=== PATIENT | female | born 1995 | race Caucasian/White ===

== ENCOUNTER 2016-09-01 12:47 | Emergency (ER) | payer BC, MEDICAID ==
[2016-09-01 13:03] VITALS: BP 142/98
[2016-09-01] MEDS ORDERED: IBUPROFEN 800 MG TABLET PO ONE (13:42)
--- NOTE | 2016-09-01 13:42 | ER Document Report ---
ED Extremity Problem, Lower - General Chief Complaint: Knee Injury Stated Complaint: RIGHT KNEE INJURY Time Seen by Provider: 09/01/16 13:41 Mode of Arrival: Ambulatory Information source: Patient Notes: Patient is a 21-year-old female who presents to the ER today with right knee pain. She does not know if there was a real injury, but states that it started approximately 4 days ago when she was washing some bands at her mom' s house at 10 in the morning. She is not sure if she turned on a wrong, etc. She denies any numbness or tingling. She states that it is "tight" TRAVEL OUTSIDE OF THE [place] IN LAST 30 DAYS: No - Related Data Allergies/Adverse Reactions: No Known Allergies Allergy (Verified 09/01/16 13:01) Past Medical History - General Information source: Patient - Social History Smoking Status: Unknown if Ever Smoked Family History: Reviewed & Not Pertinent Patient has suicidal ideation: No Patient has homicidal ideation: No Neurological Medical History: Reports: Hx Seizures - from medications Renal/ Medical History: Denies: Hx Peritoneal Dialysis - Immunizations Immunizations up to date: Yes Hx Diphtheria, Pertussis, Tetanus Vaccination: Yes - 12/16/13 Review of Systems - Review of Systems Constitutional: No symptoms reported EENT: No symptoms reported Cardiovascular: No symptoms reported Respiratory: No symptoms reported Gastrointestinal: No symptoms reported Genitourinary: No symptoms reported Female Genitourinary: No symptoms reported Musculoskeletal: See HPI Skin: No symptoms reported Hematologic/Lymphatic: No symptoms reported Neurological/Psychological: No symptoms reported Physical Exam - Vital signs Vitals: Temp Pulse Resp BP Pulse Ox 98.5 F 78 18 142/98 H 99 09/01/16 13:01 09/01/16 13:01 09/01/16 13:01 09/01/16 13:01 09/01/16 13:01 - Notes Notes: PHYSICAL EXAMINATION: GENERAL: Well-appearing and in no acute distress. HEAD: Atraumatic, normocephalic. EYES: Pupils equal round and reactive to light, extraocular movements intact, sclera anicteric, conjunctiva are normal. NECK: Normal range of motion, supple without lymphadenopathy LUNGS: CTAB and equal. No wheezes rales or rhonchi. HEART: Regular rate and rhythm without murmurs EXTREMITIES: Right knee nontender to palpation, nontender to extension or flexion, weightbearing, normal range of motion, no pitting edema. No cyanosis. NEUROLOGICAL: Cranial nerves grossly intact. Normal sensory/motor exams. PSYCH: Normal mood, normal affect. SKIN: Warm, Dry, normal turgor, no rashes or lesions noted Course - Re-evaluation Re-evalutation: 09/01/16 15:05 X-ray of the right knee negative for any acute pathology. Patient placed in Jeremiah wrap and given crutches. - Vital Signs Vital signs: Temp Pulse Resp BP Pulse Ox 98.5 F 78 18 142/98 H 99 09/01/16 13:01 09/01/16 13:01 09/01/16 13:01 09/01/16 13:01 09/01/16 13:01 Discharge - Discharge Clinical Impression: Right knee pain Qualifiers: Chronicity: acute Qualified Code(s): M25.561 - Pain in right knee Condition: Stable Disposition: HOME, SELF-CARE Instructions: Ice & Elevation ([facility]) Additional Instructions: Return immediately for any new or worsening symptoms. Follow up with primary care provider, call tomorrow to make followup appointment. Prescriptions: Ibuprofen [Motrin 800 mg Tablet] 800 mg PO Q8H PRN #30 tab PRN Reason:
--- NOTE | 2016-09-01 15:02 | RADIOLOGY REPORT (SQ) ---
EXAM DESCRIPTION: KNEE RIGHT 2 VIEWS COMPLETED DATE/TIME: 09/01/2016 2:18 pm REASON FOR STUDY: pain, injury COMPARISON: None. NUMBER OF VIEWS: Two views. TECHNIQUE: AP and lateral radiographic images acquired of the right knee. LIMITATIONS: None. FINDINGS: MINERALIZATION: Normal. BONES: No acute fracture or dislocation. No worrisome bone lesions. JOINT: No effusion. SOFT TISSUES: No soft tissue swelling. No radio-opaque foreign body. OTHER: No other significant finding. IMPRESSION: NEGATIVE STUDY OF THE RIGHT KNEE. NO RADIOGRAPHIC EVIDENCE OF ACUTE INJURY. TECHNICAL DOCUMENTATION: JOB ID: [id number] [employer]- All Rights Reserved
== END 2016-09-01 15:43 | disposition home or self-care (01) ==
LOC: ER 12:47
DX: M25.561 Pain in right knee (principal)
CPT/HCPCS: 99283; 73560; L1830

== ENCOUNTER 2016-10-08 09:30 | Emergency (ER) | payer SELFPAY ==
[2016-10-08 09:37] VITALS: BP 139/84
[2016-10-08] MEDS ORDERED: IBUPROFEN 800 MG TABLET PO ONE (09:39)
--- NOTE | 2016-10-08 10:06 | RADIOLOGY REPORT (SQ) ---
EXAM DESCRIPTION: ANKLE RIGHT COMPLETE COMPLETED DATE/TIME: 10/08/2016 9:55 am REASON FOR STUDY: rolled ankle, r lat ankle pain COMPARISON: None. NUMBER OF VIEWS: Three views. TECHNIQUE: AP, lateral, and oblique radiographic images acquired of the right ankle. LIMITATIONS: None. FINDINGS: MINERALIZATION: Normal. BONES: No acute fracture or dislocation. No worrisome bone lesions. JOINTS: No effusions. SOFT TISSUES: No soft tissue swelling. No foreign body. OTHER: No other significant finding. IMPRESSION: NEGATIVE STUDY OF THE RIGHT ANKLE. NO RADIOGRAPHIC EVIDENCE OF ACUTE INJURY. TECHNICAL DOCUMENTATION: JOB ID: [id number] [employer]- All Rights Reserved
--- NOTE | 2016-10-08 10:24 | ER Document Report ---
HPI - HPI Patient complains to provider of: ankle injury Onset: Other - 2 days Onset/Duration: Persistent Quality of pain: Achy Pain Level: 2 Context: Patient states that she was playing bad[employer]iaton and rolled her right ankle 2 days ago. Patient complains of continued right lateral ankle pain with walking. Associated Symptoms: Other - Right lateral ankle pain Exacerbated by: Standing, Movement, Walking Relieved by: Denies Similar symptoms previously: No Recently seen / treated by doctor: No - ROS ROS below otherwise negative: Yes Systems Reviewed and Negative: Yes All other systems reviewed and negative - NEURO Neurology: DENIES: Weakness - CARDIOVASCULAR Cardiovascular: DENIES: Chest pain - GASTROINTESTINAL Gastrointestinal: DENIES: Nausea - REPRODUCTIVE Reproductive: DENIES: : - MUSCULOSKELETAL Musculoskeletal: REPORTS: Extremity pain, Swelling - DERM Skin Color: Normal, [place] Past Medical History - General Information source: Patient - Social History Smoking Status: Current Every Day Smoker Frequency of alcohol use: None Drug Abuse: None Occupation: [employer] Lives with: Family Family History: Reviewed & Not Pertinent Patient has suicidal ideation: No Patient has homicidal ideation: No Neurological Medical History: Reports: Hx Seizures - from medications Renal/ Medical History: Denies: Hx Peritoneal Dialysis Surgical Hx: Negative - Immunizations Immunizations up to date: Yes Hx Diphtheria, Pertussis, Tetanus Vaccination: Yes - 12/16/13 Vertical Provider Document - CONSTITUTIONAL Agree With Documented VS: Yes Exam Limitations: No Limitations General Appearance: WD/WN, No Apparent Distress - INFECTION CONTROL TRAVEL OUTSIDE OF THE [place] IN LAST 30 DAYS: No - HEENT HEENT: Atraumatic, Normocephalic - NECK Neck: Normal Inspection - RESPIRATORY Respiratory: No Respiratory Distress O2 Sat by Pulse Oximetry: 98 - CARDIOVASCULAR Pulses: Normal: Dorsalis pedis - MUSCULOSKELETAL/EXTREMETIES Musculoskeletal/Extremeties: MAEW, FROM, Tender - Right ankle tenderness over lateral malleolar area with 1+ edema, no deformity or dislocation, Edema - NEURO Level of Consciousness: Awake, Alert, Appropriate Motor/Sensory: No Motor Deficit - DERM Integumentary: Warm, Dry, No Rash Course - Vital Signs Vital signs: Temp Pulse Resp BP Pulse Ox 98.9 F 87 14 139/84 H 98 10/08/16 09:36 10/08/16 09:36 10/08/16 09:36 10/08/16 09:36 10/08/16 09:36 - Diagnostic Test Radiology reviewed: Image reviewed, Reports reviewed Procedures - Immobilization Right Ankle Pre-Proc Neuro Vasc Exam: Normal Immobilizer type: Ankle stirrup Performed by: PCT Post-Proc Neuro Vasc Exam: Normal Alignment checked and good: Yes Discharge - Discharge Clinical Impression: Right ankle sprain Qualifiers: Encounter type: initial encounter Involved ligament of ankle: unspecified ligament Qualified Code(s): S93.401A - Sprain of unspecified ligament of right ankle, initial encounter Condition: Stable Disposition: HOME, SELF-CARE Instructions: Ankle Stirrup Splint ([facility]), Use of Crutches ([facility]), Ice & Elevation ([facility]), Sprained Ankle ([facility]), Oral Narcotic Medication ([facility]) Additional Instructions: Generic discharge Return immediately for any new or worsening symptoms Followup with your primary care provider, call tomorrow to make a followup appointment Follow-up with orthopedic doctor for any continued pain or problems Weightbearing as tolerated Prescriptions: Acetaminophen with Codeine [Acetaminophen-Cod #3 Tablet] 1 each PO Q6 PRN #12 tablet PRN Reason: Forms: Return to Work Referrals: [facility] [Provider Group] - Follow up as needed
== END 2016-10-08 10:31 | disposition home or self-care (01) ==
LOC: ER 09:30
DX: S93.401A Sprain of unspecified ligament of right ankle, initial encounter (principal); X50.0XXA Overexertion from strenuous movement or load, initial encounter; Y93.69 Activity, other involving other sports and athletics played as a team or group; F17.200 Nicotine dependence, unspecified, uncomplicated
CPT/HCPCS: 99283; 73610; L1902

== ENCOUNTER 2016-10-21 11:40 | Emergency (ER) | payer SELFPAY ==
--- NOTE | 2016-10-21 13:19 | ER Document Report ---
ED Skin Rash/Insect Bite/Abscs - General Chief Complaint: Vaginal Itching Stated Complaint: RASH ON VAGINA Time Seen by Provider: 10/21/16 12:49 Mode of Arrival: Ambulatory Information source: Patient Notes: 21-year-old female presents to ED for rash to the "lady part for a week." TRAVEL OUTSIDE OF THE [place] IN LAST 30 DAYS: No - HPI Onset: Last week Onset/Duration: Gradual Quality of pain: Burning, Other - itching Severity: None Pain Level: Denies Skin Character: Rash - moms pubis and labia Quality of rash: Itchy, Burning Identify cause: No Exacerbated by: Denies Relieved by: Denies Recently seen / treated by doctor: No - Related Data Allergies/Adverse Reactions: No Known Allergies Allergy (Verified 09/01/16 13:01) Past Medical History - General Information source: Patient Last Menstrual Period: depo shot - Social History Smoking Status: Current Every Day Smoker Cigarette use (# per day): Yes Chew tobacco use (# tins/day): No Smoking Education Provided: Yes Frequency of alcohol use: None Drug Abuse: None Lives with: Family Family History: Reviewed & Not Pertinent Patient has suicidal ideation: No Patient has homicidal ideation: No - Past Medical History Cardiac Medical History: Reports: None Pulmonary Medical History: Reports: None EENT Medical History: Reports: None Neurological Medical History: Reports: Hx Seizures - from medications Endocrine Medical History: Reports: None Renal/ Medical History: Reports: None Malignancy Medical History: Reports: None GI Medical History: Reports: None Musculoskeltal Medical History: Reports None Skin Medical History: Reports None Psychiatric Medical History: Reports: None Traumatic Medical History: Reports: None Infectious Medical History: Reports: None Surgical Hx: Negative - Immunizations Immunizations up to date: Yes Hx Diphtheria, Pertussis, Tetanus Vaccination: Yes - 12/16/13 Review of Systems - Review of Systems Constitutional: No symptoms reported EENT: No symptoms reported Cardiovascular: No symptoms reported Respiratory: No symptoms reported Gastrointestinal: No symptoms reported Genitourinary: No symptoms reported Female Genitourinary: Other - rash to labia and mons pubis Musculoskeletal: No symptoms reported Skin: No symptoms reported, Lesions - labia and mons pubis Hematologic/Lymphatic: No symptoms reported Neurological/Psychological: No symptoms reported -: Yes All other systems reviewed and negative Physical Exam - Vital signs Vitals: Temp Pulse Resp BP Pulse Ox 98.6 F 83 20 144/72 H 97 10/21/16 11:55 10/21/16 11:55 10/21/16 11:55 10/21/16 11:55 10/21/16 11:55 Interpretation: Normal - General General appearance: Appears well, Alert - HEENT Head: Normocephalic, Atraumatic Eyes: Normal Pupils: PERRL - Respiratory Respiratory status: No respiratory distress Chest status: Nontender Breath sounds: Normal Chest palpation: Normal - Cardiovascular Rhythm: Regular Heart sounds: Normal auscultation Murmur: No - Abdominal Inspection: Normal Distension: No distension Bowel sounds: Normal Tenderness: Nontender Organomegaly: No organomegaly - Genitourinary External exam: Lesions - mons pubis - Back Back: Normal, Nontender - Extremities General upper extremity: Normal inspection, Nontender, Normal color, Normal ROM , Normal temperature General lower extremity: Normal inspection, Nontender, Normal color, Normal ROM , Normal temperature, Normal weight bearing. No: Nohemi's sign - Neurological Neuro grossly intact: Yes Cognition: Normal Orientation: AAOx4 Samson Coma Scale Eye Opening: Spontaneous [place] Coma Scale Verbal: Oriented [place] Coma Scale Motor: Obeys Commands [place] Coma Scale Total: 15 Speech: Normal Motor strength normal: LUE, RUE, LLE, RLE Sensory: Normal - Psychological Associated symptoms: Normal affect, Normal mood - Skin Skin Temperature: Warm Skin Moisture: Dry Skin Color: Normal Location of irregularity: Other - mons pubis and labial folliculitis. Character of irregularity: Maculopapular Irregularity with: Tenderness, Warmth, Inflammation Course - Vital Signs Vital signs: Temp Pulse Resp BP Pulse Ox 98.1 F 80 20 138/70 H 99 10/21/16 14:48 10/21/16 14:48 10/21/16 14:48 10/21/16 14:48 10/21/16 14:48 Discharge - Discharge Clinical Impression: Folliculitis Condition: Stable Disposition: HOME, SELF-CARE Instructions: Family Physicians / Practices Additional Instructions: Folliculitis You have a skin infection called folliculitis. This occurs when bacteria infect the hair follicles of the skin. Typically, redness and small pustules are found where hair shafts enter the skin. Allergy, surface irritation, shaving, and exposure to hot tubs predispose to folliculitis. The usual treatment is antibiotic ointment, sometimes combined with cortisone-type medication. Warm compresses are often used. If the infection has moved deeper into the skin, oral antibiotics may be necessary. To avoid future episodes of folliculitis, you must identify (if possible) the factors which allowed this infection to start. If you develop increasing pain, swelling, fever, or red streaks, call the doctor or return for re-evaluation. Doxycycline Doxycycline (Vibramycin, Doryx) is an antibiotic of the tetracycline family. This type of drug is useful for infections of the respiratory tract and genital tract, and is sometimes used for intestinal infections. Unlike most tetracyclines, doxycycline can be taken with food. It is longer acting, and (usually) less prone to side effects than regular tetracycline. Tetracycline antibiotics can stain immature teeth and SHOULD NOT BE TAKEN BY CHILDREN, NURSING MOTHERS, OR WOMEN. Tetracyclines can make you more prone to sunburn. Abdominal cramping, nausea, and diarrhea are occasional side effects. Women may experience vaginal yeast infections. Call the doctor at once if you develop hives, itching, shortness of breath , or lightheadedness. SOAP CLEANSING: Gently wash the wound daily using a mild soap (like Ivory, Phisoderm, Neutrogena). Use warm water, rubbing gently until all debris, ooze, and crusting have been washed from the wound. Allow to dry briefly (about 10 minutes) after cleaning. Repeat this cleansing at least three times a day for the first two days and then once or twice a day. ANTIBIOTIC OINTMENT PROTECTION: Your wounds are such that dressing them is not practical or optional. After cleansing, you should apply a thin coating of antibiotic ointment ( Bacitracin, not Neosporin) to the wounds at least three times daily. This lessens infection risk, and may decrease the amount of scarring. Use a q-tip or dull butter knife, not your finger, to apply this ointment. Any debris or ooze which builds up in the ointment should be gently rubbed off with a sterile gauze pad. Harder crusting may need to be gently scrubbed off with a clean wash cloth with soap and warm water, perhaps applying a warm, wet wash cloth to the wound for ten minutes first. Development of redness, severe itching, or blistering may mean allergy to the ointment. See the doctor. FOLLOW-UP CARE: If you have been referred to a physician for follow-up care, call the physician s office for an appointment as you were instructed or within the next two days. If you experience worsening or a significant change in your symptoms, notify the physician immediately or return to the Emergency Department at any time for re-evaluation. Prescriptions: Doxycycline Hyclate 100 mg PO BID 10 Days Forms: Elevated Blood Pressure
[2016-10-21] MEDS ORDERED: DOXYCYCLINE HYCLATE 100 MG TABLET PO ONE (14:27)
[2016-10-21 14:49] VITALS: BP 138/70
== END 2016-10-21 14:49 | disposition home or self-care (01) ==
LOC: ER 11:40
DX: L73.9 Follicular disorder, unspecified (principal); F17.210 Nicotine dependence, cigarettes, uncomplicated; Z71.6 Tobacco abuse counseling
CPT/HCPCS: 36415; 84703; 99283

== ENCOUNTER 2016-11-01 16:44 | Emergency (ER) | payer SELFPAY ==
[2016-11-01 17:09] VITALS: BP 148/92
--- NOTE | 2016-11-01 17:50 | ER Document Report ---
ED Skin Rash/Insect Bite/Abscs - General Chief Complaint: Skin Problem Stated Complaint: BELLY BUTTON INJURY Time Seen by Provider: 11/01/16 17:39 Mode of Arrival: Ambulatory Information source: Patient Notes: 21-year-old female presents to ED for redness and irritation to her umbilicus. She states she had a "belly button piercing" that was rejected twice. She states she went to remove the piercing today and the skin tore. There is no bleeding or drainage from the site. TRAVEL OUTSIDE OF THE [place] IN LAST 30 DAYS: No - HPI Patient complains to provider of: Other - Attention to a "belly button ring "site. She states she removed the bellybutton ring today and the skin tore. Onset/Duration: Gradual Quality of pain: Burning Severity: Mild Pain Level: 1 Skin Character: Erythema Identify cause: Yes Exacerbated by: Denies Relieved by: Denies Similar symptoms previously: Yes Recently seen / treated by doctor: No - Related Data Allergies/Adverse Reactions: No Known Allergies Allergy (Verified 09/01/16 13:01) Past Medical History - General Information source: Patient - Social History Smoking Status: Current Every Day Smoker Cigarette use (# per day): Yes Chew tobacco use (# tins/day): No Smoking Education Provided: Yes - Less than 1 minute Frequency of alcohol use: None Drug Abuse: None Lives with: Family Family History: Reviewed & Not Pertinent Patient has suicidal ideation: No Patient has homicidal ideation: No - Past Medical History Cardiac Medical History: Reports: None Pulmonary Medical History: Reports: None EENT Medical History: Reports: None Neurological Medical History: Reports: Hx Seizures - from medications Endocrine Medical History: Reports: None Renal/ Medical History: Reports: None Malignancy Medical History: Reports: None GI Medical History: Reports: None Musculoskeltal Medical History: Reports None Skin Medical History: Reports None Psychiatric Medical History: Reports: None Traumatic Medical History: Reports: None Infectious Medical History: Reports: None Surgical Hx: Negative Past Surgical History: Reports: None - Immunizations Immunizations up to date: Yes Hx Diphtheria, Pertussis, Tetanus Vaccination: Yes - 12/16/13 Review of Systems - Review of Systems Constitutional: No symptoms reported EENT: No symptoms reported Cardiovascular: No symptoms reported Respiratory: No symptoms reported Gastrointestinal: No symptoms reported Genitourinary: No symptoms reported Female Genitourinary: No symptoms reported Musculoskeletal: No symptoms reported Skin: Other - red and inflammed area to site of "belly button ring" that she removed today Hematologic/Lymphatic: No symptoms reported Neurological/Psychological: No symptoms reported -: Yes All other systems reviewed and negative Physical Exam - Vital signs Vitals: Temp Pulse Resp BP Pulse Ox 98.9 F 86 16 148/92 H 99 11/01/16 17:04 11/01/16 17:04 11/01/16 17:04 11/01/16 17:04 11/01/16 17:04 Interpretation: Normal - General General appearance: Appears well, Alert - HEENT Head: Normocephalic, Atraumatic Eyes: Normal Pupils: PERRL - Respiratory Respiratory status: No respiratory distress Chest status: Nontender Breath sounds: Normal Chest palpation: Normal - Cardiovascular Rhythm: Regular Heart sounds: Normal auscultation Murmur: No - Abdominal Inspection: Normal Distension: No distension Bowel sounds: Normal Tenderness: Nontender Organomegaly: No organomegaly - Back Back: Normal, Nontender - Extremities General upper extremity: Normal inspection, Nontender, Normal color, Normal ROM , Normal temperature General lower extremity: Normal inspection, Nontender, Normal color, Normal ROM , Normal temperature, Normal weight bearing. No: Nohemi's sign - Neurological Neuro grossly intact: Yes Cognition: Normal Orientation: AAOx4 Samson Coma Scale Eye Opening: Spontaneous [place] Coma Scale Verbal: Oriented [place] Coma Scale Motor: Obeys Commands Samson Coma Scale Total: 15 Speech: Normal Motor strength normal: LUE, RUE, LLE, RLE Sensory: Normal - Psychological Associated symptoms: Normal affect, Normal mood - Skin Skin Temperature: Warm Skin Moisture: Dry Skin Color: Normal Location of irregularity: Other - area of belly button ring, Character of irregularity: Erythematous Irregularity with: Tenderness Course - Re-evaluation Re-evalutation: 11/01/16 21:07 Site cleaned with soap and water and Band-Aid applied patient given instructions for this site given to the patient. - Vital Signs Vital signs: Temp Pulse Resp BP Pulse Ox 98.9 F 86 16 148/92 H 99 11/01/16 17:04 11/01/16 17:04 11/01/16 17:04 11/01/16 17:04 11/01/16 17:04 Discharge - Discharge Clinical Impression: small cellulitis to above umbilicus Condition: Stable Disposition: HOME, SELF-CARE Additional Instructions: You have a small infected area to the skin above the umbilicus where you have rejected a another bellybutton piercing. This does not need oral antibiotics. Area well with soap and water and place antibiotic ointment to the area covered with a Band-Aid and follow-up with your primary doctor SOAP CLEANSING: Gently wash the wound daily using a mild soap (like Ivory, Phisoderm, Neutrogena). Use warm water, rubbing gently until all debris, ooze, and crusting have been washed from the wound. Allow to dry briefly (about 10 minutes) after cleaning. Repeat this cleansing at least three times a day for the first two days and then once or twice a day. ANTIBIOTIC OINTMENT PROTECTION: Your wounds are such that dressing them is not practical or optional. After cleansing, you should apply a thin coating of antibiotic ointment ( Bacitracin, not Neosporin) to the wounds at least three times daily. This lessens infection risk, and may decrease the amount of scarring. Use a q-tip or dull butter knife, not your finger, to apply this ointment. Any debris or ooze which builds up in the ointment should be gently rubbed off with a sterile gauze pad. Harder crusting may need to be gently scrubbed off with a clean wash cloth with soap and warm water, perhaps applying a warm, wet wash cloth to the wound for ten minutes first. Development of redness, severe itching, or blistering may mean allergy to the ointment. See the doctor. FOLLOW-UP CARE: If you have been referred to a physician for follow-up care, call the physician s office for an appointment as you were instructed or within the next two days. If you experience worsening or a significant change in your symptoms, notify the physician immediately or return to the Emergency Department at any time for re-evaluation.
== END 2016-11-01 18:09 | disposition home or self-care (01) ==
LOC: ER 16:44
DX: L03.311 Cellulitis of abdominal wall (principal); F17.210 Nicotine dependence, cigarettes, uncomplicated; Z71.6 Tobacco abuse counseling
CPT/HCPCS: 99283

== ENCOUNTER 2016-12-21 14:20 | Emergency (ER) | payer SELFPAY ==
[2016-12-21 14:35] VITALS: BP 139/77
[2016-12-21 15:56] LABS: AMORPHOUS SEDIMENT,URINE 1+ /HPF; APPEARANCE,URINE TURBID; BILIRUBIN,URINE NEGATIVE (NEGATIVE); CALCIUM OXALATE CRYSTALS,URINE MODERATE /HPF; GLUCOSE, URINE NEGATIVE (NEGATIVE); KETONES,URINE NEGATIVE (NEGATIVE); LEUKOCYTE ESTERASE,URINE LARGE (NEGATIVE); NITRITE,URINE NEGATIVE (NEGATIVE); PROTEIN,URINE NEGATIVE (NEGATIVE); URINE SPECIFIC GRAVITY 1.029
[2016-12-21] MEDS ORDERED: ONDANSETRON 4 MG TAB.RAPDIS PO ONE (17:22)
[2016-12-21] MEDS ORDERED: SULFAMETHOXAZOLE/TRIMETHOPRIM 800-160 MG TABLET PO ONE (17:23)
--- NOTE | 2016-12-21 17:26 | ER Document Report ---
ED General - General Chief Complaint: Urinary Frequency Stated Complaint: PAINFUL URINATION Time Seen by Provider: 12/21/16 15:43 Mode of Arrival: Ambulatory Information source: Patient Notes: This is a 21-year-old female with a history of UTIs who is currently on the Depakote shot and presents to the emergency room with dysuria. Patient denies any nausea, vomiting, fever. Patient denies vaginal discharge. Patient is otherwise asymptomatic. TRAVEL OUTSIDE OF THE [place] IN LAST 30 DAYS: No - HPI Onset: Yesterday Onset/Duration: Gradual Quality of pain: No pain Severity: None Pain Level: Denies Associated symptoms: denies: Chills, Fever, Nausea Exacerbated by: Denies Relieved by: Denies Similar symptoms previously: Yes Recently seen / treated by doctor: No - Related Data Allergies/Adverse Reactions: No Known Allergies Allergy (Verified 12/21/16 14:30) Past Medical History - General Information source: Patient - Social History Smoking Status: Never Smoker Cigarette use (# per day): No Chew tobacco use (# tins/day): No Frequency of alcohol use: None Drug Abuse: None Lives with: Family Family History: Reviewed & Not Pertinent Patient has suicidal ideation: No Patient has homicidal ideation: No - Medical History Medical History: Negative Neurological Medical History: Reports: Hx Seizures - from medications Renal/ Medical History: Denies: Hx Peritoneal Dialysis Surgical Hx: Negative - Immunizations Immunizations up to date: Yes Hx Diphtheria, Pertussis, Tetanus Vaccination: Yes - 12/16/13 Review of Systems - Review of Systems Constitutional: denies: Chills, Fever EENT: No symptoms reported Cardiovascular: No symptoms reported Respiratory: No symptoms reported Gastrointestinal: No symptoms reported Genitourinary: See HPI Female Genitourinary: No symptoms reported Musculoskeletal: No symptoms reported Skin: No symptoms reported Hematologic/Lymphatic: No symptoms reported Neurological/Psychological: No symptoms reported Physical Exam - Vital signs Vitals: Temp Pulse Resp BP Pulse Ox 98.9 F 77 18 139/77 H 98 12/21/16 14:30 12/21/16 14:30 12/21/16 14:30 12/21/16 14:30 12/21/16 14:30 Notes: Physical exam: GENERAL: 21-year-old female, alert and oriented 3, no acute distress. HEAD: Atraumatic, normocephalic. EYES: Pupils equal round and reactive to light, extraocular movements intact, sclera anicteric, conjunctiva are normal. ENT: TMs normal, nares patent, oropharynx clear without exudates. Moist mucous membranes. NECK: Normal range of motion, supple without obvious mass or JVD. LUNGS: Breath sounds clear to auscultation bilaterally and equal. No wheezes rales or rhonchi. HEART: Regular rate and rhythm without murmurs, rubs or gallops. ABDOMEN: Soft, normoactive bowel sounds. No tenderness to palpation. No guarding, no rebound. No masses appreciated. EXTREMITIES: Normal range of motion, no pitting or edema. No clubbing or cyanosis. NEUROLOGICAL: Cranial nerves II through XII grossly intact. Normal speech, moving all extremities. PSYCH: Normal mood, normal affect. SKIN: Warm, Dry, normal turgor, no rashes or lesions noted. Course - Vital Signs Vital signs: Temp Pulse Resp BP Pulse Ox 98.9 F 77 18 139/77 H 98 12/21/16 14:30 12/21/16 14:30 12/21/16 14:30 12/21/16 14:30 12/21/16 14:30 - Laboratory Laboratory results interpreted by me: 12/21/16 14:40 Urine Urobilinogen 2.0 H Ur Leukocyte Esterase LARGE H Discharge - Discharge Clinical Impression: UTI Condition: Stable Disposition: HOME, SELF-CARE Instructions: Urinary Tract Infection ([facility]) Additional Instructions: Your urine test showed a urine infection. Thank you for choosing [facility] for your care. The examination and treatment you have received in the Emergency Department today has been rendered on an emergency basis only and is not intended to be a substitute for complete medical care. You should contact your follow-up physician as it is important that he or she examine you for any new or remaining problems. If given a copy of any lab tests or radiology reports, please bring them with you when you see your physician. If your problem worsens or new symptoms appear and you are unable to arrange prompt follow-up care, return to the Emergency Department. Specific signs to look out for: Worsening vomiting, not tolerating fluids, abdominal pain Any other instructions: Drink plenty of fluids. Take nausea medicine as prescribed. Take the antibiotics as prescribed: Start tomorrow (he was given today's dose in the ER). Follow-up with your primary care doctor. If you do not have a primary care doctor I left the number for 3 below. Primary Care Doctor's affiliated with [facility]: Dr. Zbigniew Tavera [address], [place] [id number] [phone] Dr Montoya Address: [address] [place] [address] [place] [address] Dr Ugalde Address: [address] [place] [address] [place] [id number] Prescriptions: Ondansetron HCl [Zofran 4 mg Tablet] 1 - 2 tab PO Q4H PRN #10 tablet PRN Reason: Sulfamethoxazole/Trimethoprim [Bactrim Ds Tablet] 1 each PO BID #9 tablet
== END 2016-12-21 17:30 | disposition home or self-care (01) ==
LOC: ER 14:20
DX: N39.0 Urinary tract infection, site not specified (principal); Z79.899 Other long term (current) drug therapy
CPT/HCPCS: 99283; 87086; 81025; 81001; S0119

== ENCOUNTER 2017-02-21 16:26 | Emergency (ER) | payer SELFPAY ==
[2017-02-21 16:43] VITALS: BP 148/74
[2017-02-21] MEDS ORDERED: LORATADINE 10 MG TABLET PO ONE (17:31)
[2017-02-21] MEDS ORDERED: GUAIFENESIN 600 MG TABLET.SA PO ONE (17:31)
[2017-02-21] MEDS ORDERED: PSEUDOEPHEDRINE HCL 30 MG TABLET PO ONE (17:31)
--- NOTE | 2017-02-21 17:34 | ER Document Report ---
ED ENT - General Chief Complaint: Congestion Stated Complaint: SORE THROAT, RUNNY NOSE Time Seen by Provider: 02/21/17 17:16 Mode of Arrival: Ambulatory Information source: Patient Notes: Postnasal drip and fever for the last week. She denies taken her temperature so does not know what her actual temperature was. She was alert oriented pupils equal reactive light walks with a steady gait and acting her normal self with no acute distress. TRAVEL OUTSIDE OF THE [place] IN LAST 30 DAYS: No - HPI Patient complains to provider of: Nose problem, Throat problem Onset: Last week Onset/Duration: Gradual Quality of pain: Achy Associated symptoms: Congestion, Cough, Fever, Runny nose, Sinus drainage, Sore throat Similar symptoms previously: Yes Recently seen / treated by doctor: No - Related Data Allergies/Adverse Reactions: No Known Allergies Allergy (Verified 12/21/16 14:30) Past Medical History - General Information source: Patient - Social History Smoking Status: Current Every Day Smoker - Vapor cigarette Cigarette use (# per day): Yes - Vapor cigarette states she does not smoke regular cigarettes anymore Chew tobacco use (# tins/day): No Smoking Education Provided: Yes - Within 2 minutes Frequency of alcohol use: None Drug Abuse: None Occupation: [employer] Lives with: Family Family History: Reviewed & Not Pertinent Patient has suicidal ideation: No Patient has homicidal ideation: No - Past Medical History Cardiac Medical History: Reports: None Pulmonary Medical History: Reports: None EENT Medical History: Reports: None Neurological Medical History: Reports: Hx Seizures - from medications Endocrine Medical History: Reports: None Renal/ Medical History: Reports: None Malignancy Medical History: Reports: None GI Medical History: Reports: None Musculoskeltal Medical History: Reports None Skin Medical History: Reports None Psychiatric Medical History: Reports: None Traumatic Medical History: Reports: None Infectious Medical History: Reports: None Surgical Hx: Negative Past Surgical History: Reports: None - Immunizations Immunizations up to date: Yes Hx Diphtheria, Pertussis, Tetanus Vaccination: Yes - 12/16/13 Review of Systems - Review of Systems Constitutional: Fever, Recent illness EENT: No symptoms reported, Nose discharge, Sinus discharge, Throat pain Cardiovascular: No symptoms reported Respiratory: Cough Gastrointestinal: No symptoms reported Genitourinary: No symptoms reported Female Genitourinary: No symptoms reported Musculoskeletal: No symptoms reported Skin: No symptoms reported Hematologic/Lymphatic: No symptoms reported Neurological/Psychological: No symptoms reported -: Yes All other systems reviewed and negative Physical Exam - Vital signs Vitals: Temp Pulse BP Pulse Ox 98.5 F 88 148/74 H 97 02/21/17 16:43 02/21/17 16:43 02/21/17 16:43 02/21/17 16:43 Interpretation: Normal - General General appearance: Appears well, Alert - HEENT Head: Normocephalic, Atraumatic Eyes: Normal Pupils: PERRL Ears: Normal External canal: Normal Tympanic membrane: Normal Sinus: Normal Nasal: Swelling, Clear rhinorrhea Mouth/Lips: Normal Mucous membranes: Normal Pharynx: Post nasal drainage Neck: Normal - Respiratory Respiratory status: No respiratory distress Chest status: Nontender Breath sounds: Nonproductive cough Chest palpation: Normal - Cardiovascular Rhythm: Regular Heart sounds: Normal auscultation Murmur: No - Abdominal Inspection: Normal Distension: No distension Bowel sounds: Normal Tenderness: Nontender Organomegaly: No organomegaly - Back Back: Normal, Nontender - Extremities General upper extremity: Normal inspection, Nontender, Normal color, Normal ROM , Normal temperature General lower extremity: Normal inspection, Nontender, Normal color, Normal ROM , Normal temperature, Normal weight bearing. No: Nohemi's sign - Neurological Neuro grossly intact: Yes Cognition: Normal Orientation: AAOx4 Samson Coma Scale Eye Opening: Spontaneous [place] Coma Scale Verbal: Oriented [place] Coma Scale Motor: Obeys Commands Samson Coma Scale Total: 15 Speech: Normal Motor strength normal: LUE, RUE, LLE, RLE Sensory: Normal - Psychological Associated symptoms: Normal affect, Normal mood - Skin Skin Temperature: Warm Skin Moisture: Dry Skin Color: Normal Course - Re-evaluation Re-evalutation: 02/21/17 18:12 Assessment consistent with upper respiratory infection with cough, sore throat, and she states she has had a fever but has not taken her temperature. Patient was instructed to use cough, cold medicine and to follow-up with her primary doctor for her upper respiratory infection. - Vital Signs Vital signs: Temp Pulse Resp BP Pulse Ox 98.5 F 88 148/74 H 97 02/21/17 16:43 02/21/17 16:43 02/21/17 16:43 02/21/17 16:43 Discharge - Discharge Clinical Impression: URI (upper respiratory infection) Qualifiers: URI type: unspecified URI Qualified Code(s): J06.9 - Acute upper respiratory infection, unspecified Condition: Stable Disposition: HOME, SELF-CARE Instructions: Family Physicians / Practices Additional Instructions: UPPER RESPIRATORY ILLNESS: You have a viral infection of the respiratory passages -- a "cold." This common infection causes nasal congestion, drainage, and often sore throat and cough. It is highly contagious. The disease usually lasts about 10 to 14 days. There is no "cure" for the viral infection -- it must run its course. If there is a complication, such as bacterial infection in the nose, sinuses, middle ear, or bronchial tubes, antibiotics may be required. The antibiotics won't affect the virus. Drink plenty of fluids. A humidifier may help. An expectorant medication or decongestant may make you more comfortable. Use acetaminophen or ibuprofen for fever or aches. See the doctor if fever persists over two days, if there is any significant worsening of your symptoms, or if you simply fail to improve as expected. DECONGESTANT MEDICATION: A decongestant medicine has been suggested. Often this medicine is combined in the same tablet with an antihistamine or expectorant. This type of medicine is helpful in treating a bad cold or sinus condition, as well as in treatment of the nasal congestion of hay fever. It is not of much benefit for lung infections. Decongestant medicines are related to stimulants. They can cause an increase in blood pressure and heart rate. Persons with heart disease and high blood pressure should not take decongestants without discussing this with the physician. If you develop palpitations, chest pain, headache, or tremors, stop the medicine and consult your physician. COUGH-SUPPRESSANT & EXPECTORANT MEDICATION: You are to use a cough medication as needed for relief of symptoms. This medicine is a combination of an expectorant (to make the mucous thinner and more easily "coughed up") and a cough suppressant (to reduce the frequency of coughing). The cough-suppressant medicine is related to narcotics. You may experience mild nausea and sleepiness. Some patients who are very sensitive to narcotics may have stomach pain from this medicine. Taking the medicine with food reduces these side effects. Do not drive or work with machinery until you know how this medicine affects you. The expectorant should have no side effects. Iodine-containing expectorants (such as organidin) should not be taken by persons with active thyroid disease unless approved by your doctor. Call the doctor if you develop shortness of breath, hives, rash, itching, lightheadedness, or severe nausea and vomiting. USE OF ACETAMINOPHEN (Tylenol): Acetaminophen may be taken for pain relief or fever control. It's much safer than aspirin, offering a wider range of "safe" dosages. It is safe during . Some brand names are Tylenol, Panadol, Datril, Anacin 3, Tempra, and Liquiprin. Acetaminophen can be repeated every four hours. The following are maximum recommended dosages: >89 pounds or adults 650 mg to 900 mg Acetaminophen can be repeated every four hours. Maximum dose not to exceed 4000 mg a day. SMOKING: please stop the vapor cigarettes If you smoke, you should stop smoking. The tar and chemicals in cigarette smoke are harmful. Smoking has been shown to cause: emphysema chronic bronchitis lung cancer mouth and throat cancer stomach and pancreas cancer premature aging defects In addition, smoking increases ear and lung infections in children of smokers. Use nasal saline spray or Flomax for your nasal symptoms. Salt and soda solution 1 quart of water 1 tablespoon of salt 1 teaspoon of baking soda Mixed 3 ingredients together and boil for 1 minute Placed in a covered quart jar Use 1/2 ounce of cold solution to gargle 3 times a day FOLLOW-UP CARE: If you have been referred to a physician for follow-up care, call the physician s office for an appointment as you were instructed or within the next two days. If you experience worsening or a significant change in your symptoms, notify the physician immediately or return to the Emergency Department at any time for re-evaluation. Forms: Elevated Blood Pressure, Return to School
== END 2017-02-21 18:50 | disposition home or self-care (01) ==
LOC: ER 16:26
DX: J06.9 Acute upper respiratory infection, unspecified (principal); F17.290 Nicotine dependence, other tobacco product, uncomplicated
CPT/HCPCS: 99283

== ENCOUNTER 2018-01-10 00:07 | Emergency (ER) | payer SELFPAY ==
[2018-01-10 00:14] VITALS: BP 126/79
[2018-01-10] MEDS ORDERED: ACETAMINOPHEN 325 MG TABLET PO ONE (00:15)
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
[2018-01-10] MEDS ORDERED: KETOROLAC TROMETHAMINE 10 MG TABLET PO ONE (01:12)
[2018-01-10] MEDS ORDERED: HYDROCODONE/ACETAMINOPHEN 5-325 MG (6 TAB/ER DISP) PO PRN (01:13)
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
== END 2018-01-10 02:06 | disposition home or self-care (01) ==
LOC: ER 00:07
DX: S62.664A Nondisplaced fracture of distal phalanx of right ring finger, initial encounter for closed fracture (principal); W51.XXXA Accidental striking against or bumped into by another person, initial encounter
CPT/HCPCS: 99283; 73130; J3490

== ENCOUNTER 2018-01-20 12:34 | Day surgery (SDC) | payer SELFPAY ==
[~2018-01-20 12:34] MED LIST: CEFAZOLIN 2 GM/D5W RTU 2 GM/50 ML RTUPB IV PRN; DEXAMETHASONE SOD PHOSPHATE INJ 4 MG/1 ML VIAL ONE; KETOROLAC TROMETHAMINE 60 MG/2 ML SDV ONE; LACTATED RINGERS 1000 ML IV PRN; LIDOCAINE 0.5% INJ-PF (5 MG/ML) 50 ML SDV SUBCUT PRN; ONDANSETRON HCL INJ/PF 4 MG/2 ML SDV ONE
[2018-01-20] MEDS ORDERED: ACETAMINOPHEN 1,000 MG/100 ML RTUPB IV ONE (13:05)
[2018-01-20] MEDS ORDERED: FENTANYL CITRATE INJ/PF 100 MCG/2 ML AMPUL ONE ×2 (13:05→13:06)
[2018-01-20] MEDS ORDERED: MIDAZOLAM 2 MG/2 ML INJ ONE (13:05)
[2018-01-20] MEDS ORDERED: PROPOFOL INJ 200 MG/20 ML VIAL IV ONE (13:05)
[2018-01-20] MEDS ORDERED: CEFAZOLIN 2 GM/D5W RTU 2 GM/50 ML RTUPB IV ONE (13:28)
[2018-01-20 13:31] LABS: ABSOLUTE BASOPHILS # (AUTO) 0.1 10^3/uL (0.0-0.2); ABSOLUTE EOSINOPHILS # (AUTO) 0.1 10^3/uL (0.0-0.6); ABSOLUTE LYMPHOCYTES (AUTO) 2.6 10^3/uL (0.5-4.7); ABSOLUTE MONOCYTES (AUTO) 0.6 10^3/uL (0.1-1.4); ABSOLUTE NEUT (AUTO) 3.8 10^3/uL (1.7-8.2); BASOPHILS % (AUTO) 0.8 % (0-2); EOSINOPHILS % (AUTO) 1.2 % (0-6); HEMATOCRIT 40.4 % (36.0-47.0); HEMOGLOBIN 14.1 g/dL (12.0-15.5); LYMPHOCYTES % (AUTO) 36.7 % (13-45); MEAN CORPUSCULAR HEMOGLOBIN 29.9 pg (27.0-33.4); MEAN CORPUSCULAR VOLUME 85 fl (80-97); MONOCYTES % (AUTO) 8.6 % (3-13); PLATELET COUNT 282 10^3/uL (150-450); RED BLOOD COUNT 4.73 10^6/uL (3.72-5.28); RED CELL DISTRIBUTION WIDTH 13.2 % (11.5-14.0); SEGMENTED NEUTROPHILS % (AUTO) 52.7 % (42-78); TOTAL CELLS COUNTED % (AUTO) 100 %; WHITE BLOOD COUNT 7.1 10^3/uL (4.0-10.5)
[2018-01-20] MEDS ORDERED: ONDANSETRON HCL INJ/PF 4 MG/2 ML SDV ONE (16:06)
[2018-01-20] MEDS ORDERED: FENTANYL CITRATE INJ/PF 100 MCG/2 ML AMPUL IV PRN ×3 (17:18)
[2018-01-20] MEDS ORDERED: DIPHENHYDRAMINE HCL 50 MG/ML VIAL IV PRN (17:18)
[2018-01-20] MEDS ORDERED: MEPERIDINE HCL/PF INJ 25 MG/1 ML DISP.SYRIN IV PRN (17:18)
[2018-01-20] MEDS ORDERED: PROMETHAZINE HCL INJ 25 MG/1 ML VIAL IV PRN ×2 (17:18)
[2018-01-20] MEDS ORDERED: MORPHINE SULFATE 10 MG/ML INJ IV PRN (17:18)
[2018-01-20] MEDS ORDERED: TRAMADOL HCL 50 MG TABLET PO PRN (17:39)
--- NOTE | 2018-01-20 17:39 | Discharge Summary ---
Discharge Summary (SDC) - Discharge Final Diagnosis: Status post close reduction with percutaneous pinning of the right ring finger middle phalanx intra-articular fracture Date of Surgery: 01/20/18 Discharge Date: 01/20/18 Condition: Good Treatment or Instructions: Keep the dressing dry clean and intact until follow-up visit. Nonweightbearing and no lifting or carrying. Follow-up in 10-14 days for repeat x-ray Prescriptions: Tramadol HCl 50 mg PO Q6HP PRN #20 tablet PRN Reason: Discharge Diet: As Tolerated Respiratory Treatments at Home: Deep Breathing/Coughing Discharge Activity: No Driving - While taking narcotics, No Lifting/Push/Pulling , Slowly Increase Activity, Walk Frequently Home Care Assistance: None Needed Report the Following to Your Physician Immediately: Shortness of Breath, Vomiting, Increase in Pain, Fever over 101 Degrees, Unusual Bleeding, Redness, Drainage-Yellow, Drainage-Howard, Drainage-Green, Drainage-Foul Smelling
[2018-01-20 19:37] VITALS: BP 136/96
--- NOTE | 2018-01-21 08:14 | RADIOLOGY REPORT (SQ) ---
EXAM DESCRIPTION: FINGER RIGHT COMPLETED DATE/TIME: 01/20/2018 5:45 pm REASON FOR STUDY: PERC PINNING 4TH DIGIT S62.604A FRACTURE OF UNSP PHALANX OF RIGHT RING FINGER, IN IT COMPARISON: None. FLUOROSCOPY TIME: 49 seconds 2 images saved to PACS. TECHNIQUE: Intra-operative images acquired during surgical procedure to evaluate progress. NUMBER OF IMAGES: Two LIMITATIONS: None. FINDINGS: Selected images from orthopedic pin fixation of middle phalanx fracture, fourth digit. IMPRESSION: IMAGE(S) OBTAINED DURING PROCEDURE. COMMENT: Quality ID [id number]: Final reports for procedures using fluoroscopy that document radiation exp osure indices, or exposure time and number of fluorographic images (if radiation exposure indices are not available) Please consult full operative report of the attending physician for description of the procedure. TECHNICAL DOCUMENTATION: JOB ID: [id number] [email or web address]- All Rights Reserved Reading location - IP/workstation name: [email or web address]
--- NOTE | 2018-01-21 08:23 | RADIOLOGY REPORT (SQ) ---
EXAM DESCRIPTION: NO CHG FLUORO COMPLETE DATE/TIME: 01/20/2018 5:45 pm REASON FOR STUDY: PERC PINNING 4TH DIGIT S62.606N FRACTURE OF UNSP PHALANX OF RIGHT RING FINGER, IN IT FINDINGS: Please see combined report for performance of procedure and radiologic supervision and int erpretation. IMPRESSION: Please see combined report for performance of procedure and radiologic supervision and i nterpretation. Reading location - IP/workstation name: [email or web address]
--- NOTE | 2018-01-31 16:44 | Operative Report ---
Operative Report DATE OF SURGERY: 01/20/18 PREOPERATIVE DIAGNOSIS: Right ring finger displaced middle phalanx intra- articular fracture POSTOPERATIVE DIAGNOSIS: Same OPERATION: Closed reduction and percutaneous pinning of the right ring finger middle phalanx fracture SURGEON: TRUPTI TIDWELL ANESTHESIA: GA TISSUE REMOVED OR ALTERED: None COMPLICATIONS: None ESTIMATED BLOOD LOSS: 2 mL INTRAOPERATIVE FINDINGS: As above PROCEDURE: Patient after receiving antibiotics was brought to the operating room where she was induced and given general anesthetic. The right hand was placed in the tourniquet and right middle finger was identified as the correct site. Mini C- arm was used as well to verify the fracture. Once the right hand was prepped and draped in a normal sterile surgical fashion and timeout was done identifying the correct site we then proceeded to do a closed reduction under mini C-arm. I used 2 K wires and to hold the condyle fracture of the middle phalanx of the ring finger make sure I had AP lateral was then obliques to confirm the reduction and then the pinning. Once I was satisfied with the reduction and fixation I then proceeded to cut the K wires and Place Jergensen balls on them. Final pictures were taken and saved in and patient was then wrapped with Xeroform over the pins and soft roll and Jeremiah bandage. Tourniquet was let down and then patient was awoken and sent to PACU in a stable condition
== END 2018-01-20 19:25 | disposition home or self-care (01) ==
LOC: OROUT 12:34
PROVIDERS: ATTEND Orthopaedic Surgery
DX: S62.624A Displaced fracture of middle phalanx of right ring finger, initial encounter for closed fracture (principal); X58.XXXA Exposure to other specified factors, initial encounter; E66.9 Obesity, unspecified; Z68.39 Body mass index [BMI] 39.0-39.9, adult
CPT/HCPCS: 36415; 85025; 81025; 73140; 26727; C1713; J2250; J1100; J1885; J3010; J2405; J2704; J0690; J0131; 01810

== ENCOUNTER 2018-02-11 20:31 | Emergency (ER) | payer BC ==
--- NOTE | 2018-02-11 22:15 | ER Document Report ---
HPI - HPI Patient complains to provider of: Finger pain Time Seen by Provider: 02/11/18 21:39 Onset: This afternoon Onset/Duration: Gradual Quality of pain: Achy Pain Level: 2 Context: Patient states she had an orthopedic pinning procedure of a finger fracture that was performed on the first of this month. Patient states that she feels as though the pins are pushing through her finger and about to break through the skin on the other side of her finger. Patient complains of increased pain to her right fourth finger at the site where the pins are starting to protrude. Patient states she does not follow up with her orthopedic surgeon until February 21. Patient denies any new injury. Patient denies any fever. Associated Symptoms: Other - Right fourth finger pain Exacerbated by: Movement Relieved by: Denies Similar symptoms previously: No Recently seen / treated by doctor: No - ROS ROS below otherwise negative: Yes Systems Reviewed and Negative: Yes All other systems reviewed and negative - CONSTITUTIONAL Constitutional: DENIES: Fever, Chills - REPRODUCTIVE Reproductive: DENIES: : - MUSCULOSKELETAL Musculoskeletal: REPORTS: Extremity pain - DERM Skin Color: Normal Skin Problems: None Past Medical History - General Information source: Patient - Social History Smoking Status: Never Smoker Frequency of alcohol use: None Drug Abuse: None Occupation: service order taker Lives with: Family Family History: Reviewed & Not Pertinent - Medical History Medical History: Negative Neurological Medical History: Reports: Hx Seizures - MEDICATION INDUCED >5YRS Renal/ Medical History: Denies: Hx Peritoneal Dialysis Past Surgical History: Reports: Hx Orthopedic Surgery - Immunizations Immunizations up to date: Yes Hx Diphtheria, Pertussis, Tetanus Vaccination: Yes Vertical Provider Document - CONSTITUTIONAL Agree With Documented VS: Yes Exam Limitations: No Limitations General Appearance: WD/WN, No Apparent Distress - INFECTION CONTROL TRAVEL OUTSIDE OF THE [place] IN LAST 30 DAYS: No - HEENT HEENT: Atraumatic, Normocephalic - NECK Neck: Normal Inspection - RESPIRATORY Respiratory: No Respiratory Distress - CARDIOVASCULAR Pulses: Normal: Radial - BACK Back: Normal Inspection - MUSCULOSKELETAL/EXTREMETIES Musculoskeletal/Extremeties: MAEW, Non-Tender, Eccymosis Notes: Patient with 2 pins to right fourth finger middle phalanx, pins causing tenting on the opposite side of digit, no puncture wound noted from the fixator pins - NEURO Level of Consciousness: Awake, Alert, Appropriate Motor/Sensory: No Motor Deficit, No Sensory Deficit - DERM Integumentary: Warm, Dry Course - Re-evaluation Re-evalutation: 02/11/18 22:13 Gentle traction used to withdraw fixator pins only until the skin stopped tenting, patient states that pain on the opposite side of the finger resolved once tenting resolved - Vital Signs Vital signs: Temp Pulse Resp BP Pulse Ox 97.6 F 80 18 129/68 H 95 02/11/18 20:43 02/11/18 20:43 02/11/18 20:43 02/11/18 20:43 02/11/18 20:43 Discharge - Discharge Clinical Impression: Visit for wound check Condition: Stable Disposition: HOME, SELF-CARE Additional Instructions: Return immediately for any new or worsening symptoms Followup with your primary care provider, call tomorrow to make a followup appointment Follow-up with Dr. Duncan, call his office on Wednesday and let them know the issues that you are having. You may need a sooner follow-up than February 21 for further evaluation. Referrals: TRUPTI NAPIER MD [ACTIVE STAFF] - 02/14/18
[2018-02-12 00:14] VITALS: BP 130/66
== END 2018-02-12 00:09 | disposition home or self-care (01) ==
LOC: ER 20:31
DX: M79.644 Pain in right finger(s) (principal)
CPT/HCPCS: 99283

== ENCOUNTER 2018-09-08 00:58 | Emergency (ER) | payer BC ==
[2018-09-08] MEDS ORDERED: HYDROCODONE/ACETAMINOPHEN 5-325 MG TABLET PO ONE (02:01)
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
[2018-09-08] MEDS ORDERED: HYDROCODONE/ACETAMINOPHEN 5-325 MG TABLET ONE (05:53)
[2018-09-08 06:10] VITALS: BP 132/82
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
== END 2018-09-08 07:10 | disposition home or self-care (01) ==
LOC: ER 00:58
DX: S16.1XXA Strain of muscle, fascia and tendon at neck level, initial encounter (principal); R51 Headache; V89.2XXA Person injured in unspecified motor-vehicle accident, traffic, initial encounter
CPT/HCPCS: 70450; 70486; 72125; 81025; 99284

== ENCOUNTER → 2019-10-03 | Outpatient (CLI) | payer BC ==
--- NOTE | 2019-10-03 15:00 | RADIOLOGY REPORT (SQ) ---
EXAM DESCRIPTION: U/S [id number] TRNABD 1GES W/ODOP IMAGES COMPLETED DATE/TIME: 10/03/2019 2:43 pm REASON FOR STUDY: Z34.81 ENCOUNTER FOR SUPRVSN OF NORMAL , FIRST TRIMESTER Z34.81 ENCOUNTE R FOR SUPRVSN OF NORMAL , FIRST TRIM COMPARISON: None. TECHNIQUE: Transvaginal and transabdominal static and realtime grayscale images acquired of the pelv is. Additional selected spectral and color Doppler images recorded. All images stored on PACs. bHCG: Unknown CLINICAL DATES: 9 weeks 4 days LIMITATIONS: None. FINDINGS: FETUS: Single Living intrauterine . ULTRASOUND EGA: 8 weeks 6 days ULTRASOUND YA: 05/08/2020 EFW: Not applicable less than 20 weeks. CRL: 2.2 cm FHR: 168 beats per minute. SURVEY: Too early to assess. AMNIOTIC FLUID: Adequate amount. PLACENTA: Not yet developed due to early gestation. SUBCHORIONIC BLEED: Yes SIZE OF BLEED: 2.8 x 2.1 x 0.4 cm UTERUS: No masses. No anomalies. CERVICAL LENGTH: 3.2 cm Closed. RIGHT ADNEXA: Normal ovary with normal vascular flow. 2.9 x 2.8 x 3 cm. No adnexal free fluid. No adnexal masses. LEFT ADNEXA: Normal ovary with normal vascular flow. 2.5 x 1.5 x 2.2 cm. No adnexal free fluid. No adnexal masses. FREE FLUID: None. OTHER: No other significant finding. IMPRESSION: LIVING INTRAUTERINE . EGA 8 weeks 6 days Trimester of : First trimester - 0 to 13 weeks. TECHNICAL DOCUMENTATION: JOB ID: [id number] [employer]- All Rights Reserved rev-08/06 Reading location - IP/workstation name: [email or web address]
== END ==
LOC: RAD 13:59
PROVIDERS: ATTEND Midwife
DX: Z34.81 Encounter for supervision of other normal pregnancy, first trimester (principal); Z3A.08 8 weeks gestation of pregnancy
CPT/HCPCS: 76801

== ENCOUNTER 2019-10-27 17:56 | Emergency (ER) | payer BC ==
[2019-10-27 18:11] VITALS: BP 142/62
--- NOTE | 2019-10-27 21:14 | ER Document Report ---
ED Medical Screen (RME) - General Chief Complaint: Dizziness Stated Complaint: DIZZINESS Time Seen by Provider: 10/27/19 21:07 Primary Care Provider: STACEY VARELA CNM [Primary Care Provider] - Follow up as needed Notes: Patient is a G1, P0 24-year-old female, about 13 weeks who presents emergency department with a chief complaint of dizziness. Patient states that her dizziness started today. 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 States that her legs are starting to swell. Denies any vaginal bleeding. Denies any dysuria. Exam: Soft, nontender abdomen. I have greeted and performed a rapid initial assessment of this patient. A comprehensive ED assessment and evaluation of the patient, analysis of test results and completion of medical decision making process will be conducted by an additional ED providers. TRAVEL OUTSIDE OF THE [place] IN LAST 30 DAYS: No - Related Data Allergies/Adverse Reactions: metal Allergy (Severe, Uncoded 09/08/18 01:12) rash Past Medical History - Past Medical History Cardiac Medical History: Denies: Hx Coronary Artery Disease, Hx Heart Attack, Hx Hypertension Pulmonary Medical History: Denies: Hx Asthma, Hx Bronchitis, Hx COPD, Hx Pneumonia Neurological Medical History: Reports: Hx Seizures - MEDICATION INDUCED >5YRS. Denies: Hx Cerebrovascular Accident Renal/ Medical History: Denies: Hx Peritoneal Dialysis Musculoskeltal Medical History: Denies Hx Arthritis Past Surgical History: Reports: Hx Orthopedic Surgery - Immunizations Immunizations up to date: Yes Hx Diphtheria, Pertussis, Tetanus Vaccination: Yes Physical Exam - Vital signs Vitals: Temp Pulse Resp BP Pulse Ox 98.9 F 73 18 142/62 H 100 10/27/19 18:10 10/27/19 18:10 10/27/19 18:10 10/27/19 18:10 10/27/19 18:10 Course - Vital Signs Vital signs: Temp Pulse Resp BP Pulse Ox 98.9 F 73 18 142/62 H 100 10/27/19 18:10 10/27/19 18:10 10/27/19 18:10 10/27/19 18:10 10/27/19 18:10 Doctor's Discharge - Discharge Referrals: STACEY VARELA CNM [Primary Care Provider] - Follow up as needed
[2019-10-27 21:54] LABS: ABSOLUTE EOSINOPHILS # (AUTO) 0.1 10^3/uL (0.0-0.6); ABSOLUTE LYMPHOCYTES (AUTO) 2.6 10^3/uL (0.5-4.7); ABSOLUTE MONOCYTES (AUTO) 0.6 10^3/uL (0.1-1.4); ABSOLUTE NEUT (AUTO) 5.8 10^3/uL (1.7-8.2); BASOPHILS % (AUTO) 0.2 % (0-2); EOSINOPHILS % (AUTO) 0.9 % (0-6); HEMOGLOBIN 12.7 g/dL (12.0-15.5); LYMPHOCYTES % (AUTO) 28.5 % (13-45); MEAN CORPUSCULAR HEMOGLOBIN 30.7 pg (27.0-33.4); MEAN CORPUSCULAR HGB CONC 35.3 g/dL (32.0-36.0); MEAN CORPUSCULAR VOLUME 87 fl (80-97); MONOCYTES % (AUTO) 6.9 % (3-13); PLATELET COUNT 269 10^3/uL (150-450); RED BLOOD COUNT 4.13 10^6/uL (3.72-5.28); RED CELL DISTRIBUTION WIDTH 13.4 % (11.5-14.0); SEGMENTED NEUTROPHILS % (AUTO) 63.5 % (42-78); TOTAL CELLS COUNTED % (AUTO) 100 %; WHITE BLOOD COUNT 9.1 10^3/uL (4.0-10.5)
[2019-10-27 22:08] LABS: APPEARANCE,URINE SLIGHTLY-CLOUDY; BILIRUBIN,URINE NEGATIVE (NEGATIVE); COLOR,URINE YELLOW; GLUCOSE, URINE NEGATIVE (NEGATIVE); KETONES,URINE NEGATIVE (NEGATIVE); LEUKOCYTE ESTERASE,URINE NEGATIVE (NEGATIVE); NITRITE,URINE NEGATIVE (NEGATIVE); PROTEIN,URINE NEGATIVE (NEGATIVE); URINE SPECIFIC GRAVITY 1.023
[2019-10-27 22:41] LABS: ALBUMIN 4.2 g/dL (3.5-5.0); ALKALINE PHOSPHATASE 68 U/L (38-126); ANION GAP 10 (5-19); ASPARTATE AMINO TRANSFERASE 26 U/L (14-36); BILIRUBIN,TOTAL 0.8 mg/dL (0.2-1.3); BLOOD UREA NITROGEN 8 mg/dL (7-20); CALCIUM 9.8 mg/dL (8.4-10.2); CARBON DIOXIDE 25 mmol/L (22-30); CHLORIDE 101 mmol/L (98-107); GLUCOSE 135 mg/dL (75-110); POTASSIUM 4.1 mmol/L (3.6-5.0); TOTAL PROTEIN 7.6 g/dL (6.3-8.2)
--- NOTE | 2019-10-28 00:23 | EKG REPORT ---
SEVERITY:- ABNORMAL ECG - SINUS RHYTHM BORDERLINE LEFT AXIS DEVIATION NONSPECIFIC T ABNORMALITIES, INFERIOR LEADS : Confirmed by: William Fitzgerald MD 28-Oct-2019 00:22:03
== END 2019-10-28 02:06 | disposition left against medical advice (07) ==
LOC: ER 17:56
DX: O26.899 Other specified pregnancy related conditions, unspecified trimester (principal); R42 Dizziness and giddiness; Z3A.00 Weeks of gestation of pregnancy not specified; Z91.048 Other nonmedicinal substance allergy status; Z53.20 Procedure and treatment not carried out because of patient's decision for unspecified reasons
CPT/HCPCS: 36415; 80053; 81001; 83690; 84702; 85025; 93005; 93010; 99281

== ENCOUNTER 2019-12-10 20:17 | Emergency (ER) | payer BC, MEDICAID ==
[2019-12-10] MEDS ORDERED: ACETAMINOPHEN 325 MG TABLET PO ONE (20:35)
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
--- NOTE | 2019-12-10 23:48 | ER Document Report ---
ED Burn/Smoke/Toxic Fumes - General Chief Complaint: Thermal Burn Stated Complaint: RIGHT THUMB STEAM BURN Time Seen by Provider: 12/10/19 20:28 Primary Care Provider: STACEY VARELA CNM [NO LOCAL MD] - Follow up as needed Mode of Arrival: Ambulatory Cannot obtain history due to: Unstable vital signs Notes: This 24-year-old woman presents to the emergency department with a history of burn to the right thumb. Apparently she was defrosting hamburger and a microwave and a large plastic bag. Once the defrosting had discontinued she reached down to grab a plastic bag and steam coming from the bag caused a burn to the right thumb. Complains of severe pain. She denies any other associated estrella. She is , due date is May 03, 2020. TRAVEL OUTSIDE OF THE [place] IN LAST 30 DAYS: No - Related Data Allergies/Adverse Reactions: metal Allergy (Severe, Uncoded 09/08/18 01:12) rash Home Medications: tylenol, Past Medical History - General Information source: Patient - Social History Smoking Status: Never Smoker Frequency of alcohol use: None Drug Abuse: None Family History: Reviewed & Not Pertinent - Past Medical History Cardiac Medical History: Denies: Hx Coronary Artery Disease, Hx Heart Attack, Hx Hypertension Pulmonary Medical History: Denies: Hx Asthma, Hx Bronchitis, Hx COPD, Hx Pneumonia Neurological Medical History: Reports: Hx Seizures - MEDICATION INDUCED >5YRS. Denies: Hx Cerebrovascular Accident Renal/ Medical History: Denies: Hx Peritoneal Dialysis Musculoskeletal Medical History: Denies Hx Arthritis Past Surgical History: Reports: Hx Orthopedic Surgery - Immunizations Immunizations up to date: Yes Hx Diphtheria, Pertussis, Tetanus Vaccination: Yes Physical Exam - Vital signs Vitals: Temp Pulse Resp BP Pulse Ox 98.9 F 81 16 148/70 H 100 12/10/19 20:44 12/10/19 20:44 12/10/19 20:44 12/10/19 20:44 12/10/19 20:44 - Notes Notes: PHYSICAL EXAMINATION: Physical Exam: General: Well-nourished well-developed in no acute distress HEENT: NC/AT, pupils equal round and reactive to light, MM moist,nares clear, oropharynx clear, airway patent Neck: supple, no adenopathy, no masses. Good range of motion Lungs: clear, no wheezing, no rales no rhonchi CVS: Regular rate and rhythm no murmur gallop or rub Abdomen: Soft, active, nontender, no masses, no hepatosplenomegaly Ext: No edema, clubbing or cyanosis. Neuro: Alert and responsive, moving all 4 extremities on command, cranial nerves intact, no focal findings Skin: Right thumb with area of first and second-degree burn on the ventral side of the thumb with some mild blistering noted. - HEENT Head: Atraumatic Course - Re-evaluation Re-evalutation: 12/10/19 23:46 Patient presents with first and second-degree estrella to the dorsal aspect of the right thumb. She has good flexion extension with no involvement of the palm side of the thumb. A Silvadene dressing is applied to the area burn. Patient is given a prescription for a quantity of Silvadene. I have instructed her to use Tylenol for pain given her early status. Assessment of the and feels good heart tones and no cramping or bleeding according to the patient. - Vital Signs Vital signs: Temp Pulse Resp BP Pulse Ox 98.9 F 81 16 148/70 H 100 12/10/19 20:44 12/10/19 20:44 12/10/19 20:44 12/10/19 20:44 12/10/19 20:44 Discharge - Discharge Clinical Impression: state, incidental First degree burn of right thumb Qualifiers: Encounter type: initial encounter Qualified Code(s): T23.111A - Burn of first degree of right thumb (nail), initial encounter Second degree burn of right thumb Qualifiers: Encounter type: initial encounter Qualified Code(s): T23.211A - Burn of second degree of right thumb (nail), initial encounter Condition: Good Disposition: HOME, SELF-CARE Instructions: Estrella ([facility]), Silvadene Cream ([facility]), Soap Cleansing ([facility]) Additional Instructions: You were seen in the emergency department tonight with a burn to your right thumb. You are given a prescription for burn cream to use and you may take Tyle nol for pain. Please follow-up with your primary care doctor as needed. HOME CARE INSTRUCTIONS & INFORMATION: Thank you for choosing us for your medical needs. We hope you're satisfied with the care you received. After you leave, you must properly care for your problem and, at the same time, observe its progress. Any condition can change. Some illnesses can change rapidly over hours or days. If your condition worsens, return to the Emergency Department or see your physician promptly. ABOUT YOUR X-RAYS AND EKG'S: If you had an EKG or X-rays taken, they have been read by the Emergency Physician. The X-rays and EKG's will also be read by a Radiologist or Area Attendant within 24 hours. If discrepancies are noted, you will be notified by telephone. Please be certain the ED has a correct telephone number & address where you can be reached. Also, realize that some fractures or abnormalities do not show up on initial X-rays. If your symptoms continue, see your physician. ABOUT YOUR LABORATORY TEST: If you had laboratory tests, the results have been reviewed by the Emergency Physician. Some test results (for example cultures) may not be available for several days. You will be contacted if any test result shows you need additional treatment. Please be certain the ED has a correct telephone number and address where you can be reached. ABOUT YOUR MEDICATIONS: You will receive instructions on how to take your medicine on the prescription label you receive. Additional information may be provided by the Pharmacy. If you have questions afterwards, call the ED for cl arification or further instructions. Some prescribed medications may cause drowsiness. Do not perform tasks such as driving a car or operating machinery without consulting your Pharmacist. If you feel you need a refill of pain medication, your condition will need re-evaluation. Please do not call for a refill of any medication. ABOUT YOUR SIGNATURE: Signature of this document acknowledges to followin. Understanding that you received emergency treatment and that you may be released before al medical problems are known or treated. Please be certain the ED has a correct phone number & address where you can be reached. 2. Acknowledgement that you will arrange for follow-up care as recommended. 3. Authorization for the Emergency Physician to provide information to your follow-up Physician in order to maximize your care. AT ANY TIME, IF YOUR SYMPTOMS CHANGE SIGNIFICANTLY OR WORSEN OR YOU DEVELOP NEW SYMPTOMS, RETURN TO THE EMERGENCY DEPARTMENT IMMEDIATELY FOR RE-EVALUATION. OUR GOAL IS TO PROVIDE EXCELLENT MEDICAL CARE! WE HOPE THAT WE HAVE MET YOUR EXPECTATIONS DURING YOUR EMERGENCY DEPARTMENT VISIT AND THAT YOU FEEL YOU HAVE RECEIVED EXCELLENT CARE! Prescriptions: Silver Sulfadiazine [Silvadene 1% Cream 50 gm Tube] 1 applic TP BID #50 grams Referrals: STACEY VARELA CNM [NO LOCAL MD] - Follow up as needed
[2019-12-11] MEDS ORDERED: SILVER SULFADIAZINE 1% CREAM 50 GM ONE (00:15)
[2019-12-11] MEDS: SILVER SULFADIAZINE 1% CREAM 50 GM TP ONE ×2 (00:33→00:35)
[2019-12-11 00:37] VITALS: BP 131/71
== END 2019-12-11 00:38 | disposition home or self-care (01) ==
LOC: ER 20:17
DX: O26.92 Pregnancy related conditions, unspecified, second trimester (principal); T23.211A Burn of second degree of right thumb (nail), initial encounter; X13.1XXA Other contact with steam and other hot vapors, initial encounter; Y93.G3 Activity, cooking and baking; Z3A.19 19 weeks gestation of pregnancy
CPT/HCPCS: 99283; J3490 ×2

== ENCOUNTER 2020-01-01 00:21 | Outpatient (CLI) | payer BC, MEDICAID ==
[2020-01-01 01:33] LABS: APPEARANCE,URINE SLIGHTLY-CLOUDY; BILIRUBIN,URINE NEGATIVE (NEGATIVE); CALCIUM OXALATE CRYSTALS,URINE MODERATE /HPF; COLOR,URINE YELLOW; GLUCOSE, URINE NEGATIVE (NEGATIVE); KETONES,URINE NEGATIVE (NEGATIVE); LEUKOCYTE ESTERASE,URINE NEGATIVE (NEGATIVE); NITRITE,URINE NEGATIVE (NEGATIVE); PROTEIN,URINE 30 mg/dL (NEGATIVE); UROBILINOGEN,URINE NEGATIVE mg/dL (<2.0)
[2020-01-01 01:47] LABS: URINE AMPHETAMINES SCREEN NEGATIVE; URINE BARBITURATES SCREEN NEGATIVE; URINE BENZODIAZEPINES SCREEN NEGATIVE; URINE COCAINE SCREEN NEGATIVE; URINE MARIJUANA (THC) SCREEN NEGATIVE; URINE METHADONE SCREEN NEGATIVE; URINE PHENCYCLIDINE SCREEN NEGATIVE
== END 2020-01-01 02:06 | disposition home or self-care (01) ==
LOC: LC 00:21
PROVIDERS: ATTEND Obstetrics & Gynecology Gynecology
DX: O47.02 False labor before 37 completed weeks of gestation, second trimester (principal); Z3A.20 20 weeks gestation of pregnancy
CPT/HCPCS: 80307; 81001

== ENCOUNTER 2020-01-06 17:40 | Outpatient (CLI) | payer BC, MEDICAID ==
[2020-01-06 18:36] LABS: APPEARANCE,URINE CLEAR; BILIRUBIN,URINE NEGATIVE (NEGATIVE); COLOR,URINE YELLOW; GLUCOSE, URINE NEGATIVE (NEGATIVE); KETONES,URINE NEGATIVE (NEGATIVE); LEUKOCYTE ESTERASE,URINE NEGATIVE (NEGATIVE); NITRITE,URINE NEGATIVE (NEGATIVE); PROTEIN,URINE NEGATIVE (NEGATIVE); URINE SPECIFIC GRAVITY 1.019
[2020-01-06 18:39] LABS: URINE AMPHETAMINES SCREEN NEGATIVE; URINE BARBITURATES SCREEN NEGATIVE; URINE BENZODIAZEPINES SCREEN NEGATIVE; URINE COCAINE SCREEN NEGATIVE; URINE MARIJUANA (THC) SCREEN NEGATIVE; URINE METHADONE SCREEN NEGATIVE; URINE PHENCYCLIDINE SCREEN NEGATIVE
[2020-01-06] MEDS ORDERED: RINGERS SOLUTION,LACTATED 1,000 ML IV PRN (19:10)
== END 2020-01-06 19:40 | disposition home or self-care (01) ==
LOC: LC 17:40
PROVIDERS: ATTEND Obstetrics & Gynecology
DX: O26.892 Other specified pregnancy related conditions, second trimester (principal); Z3A.21 21 weeks gestation of pregnancy; E86.0 Dehydration
CPT/HCPCS: 80307; 81001

== ENCOUNTER 2020-02-27 20:09 | Emergency (ER) | payer BC, MEDICAID ==
--- NOTE | 2020-02-27 21:16 | ER Document Report ---
ED Medical Screen (RME) - General Chief Complaint: Knee Injury Stated Complaint: FALL INJURY Time Seen by Provider: 02/27/20 21:04 Primary Care Provider: LYNDA ENGLISH MD [Primary Care Provider] - Follow up as needed TRAVEL OUTSIDE OF THE [place] IN LAST 30 DAYS: No - HPI Notes: 02/27/20 21:14 24-year-old female 29 weeks 6 days presents to the emergency room today because she fell after tripping over a curb and hit her stomach and knees approximately 1 hour ago. Denies any head trauma or change in level consciousness. States she has felt baby move in that time. Denies any vaginal bleeding or vaginal discharge. Patient wanted to get baby checked out as well as herself. Denies any fevers or chills. Denies being on any blood thinners. I have greeted and performed a rapid initial assessment of this patient. A comprehensive ED assessment and evaluation of the patient, analysis of test results and completion of the medical decision making process will be conducted by additional ED providers. PHYSICAL EXAMINATION: GENERAL: Well-appearing, well-nourished and in no acute distress. CV: s1, s2 regular LUNGS: No respiratory distress abd: fundus 3 breaths above umbilicus Musculoskeletal: Normal range of motion. Tenderness to bilateral knees on palpation. pain with flexion. No pain with extension inversion eversion. NEUROLOGICAL: Normal speech, normal gait. SKIN: Warm, Dry, normal turgor, no rashes or lesions noted. - Related Data Allergies/Adverse Reactions: metal Allergy (Severe, Uncoded 02/27/20 21:01) rash Home Medications: PER-NATALS. ZOFRAN Past Medical History - Social History Frequency of alcohol use: None Drug Abuse: None - Past Medical History Cardiac Medical History: Denies: Hx Coronary Artery Disease, Hx Heart Attack, Hx Hypertension Pulmonary Medical History: Denies: Hx Asthma, Hx Bronchitis, Hx COPD, Hx Pneumonia Neurological Medical History: Reports: Hx Seizures - MEDICATION INDUCED >5YRS. Denies: Hx Cerebrovascular Accident Renal/ Medical History: Denies: Hx Peritoneal Dialysis Musculoskeltal Medical History: Denies Hx Arthritis Past Surgical History: Reports: Hx Orthopedic Surgery - Immunizations Immunizations up to date: Yes Hx Diphtheria, Pertussis, Tetanus Vaccination: Yes Physical Exam - Vital signs Vitals: Temp Pulse Resp BP Pulse Ox 98.2 F 90 20 143/74 H 97 02/27/20 20:17 02/27/20 20:17 02/27/20 20:17 02/27/20 20:17 02/27/20 20:17 Course - Vital Signs Vital signs: Temp Pulse Resp BP Pulse Ox 98.2 F 90 20 143/74 H 97 02/27/20 20:17 02/27/20 20:17 02/27/20 20:17 02/27/20 20:17 02/27/20 20:17 Doctor's Discharge - Discharge Referrals: LYNDA ENGLISH MD [Primary Care Provider] - Follow up as needed
--- NOTE | 2020-02-27 22:38 | RADIOLOGY REPORT (SQ) ---
EXAM DESCRIPTION: U/S OB 14+ TRNABD 1GES W/O DOP RadLex: US FOLLOW UP CLINICAL HISTORY: 24 years Female; fall onto concrete, hit abd. 7months preg; TECHNIQUE: Transabdominal obstetrical ultrasound was performed. COMPARISON: 10/03/2019 FINDINGS: Number of fetuses: Single position: Breech BPD: 30 weeks 5 days, 65% HC: 31 weeks 1 day, 54% AC: 31 weeks 2 days, 83% FL: 30 weeks 6 days, 65% EFW: 1696 g, 62% HR: 140 BPM Anatomy: Grossly normal on this limited exam Amniotic fluid: GENEVA 21.7 cm, LBP 11.8 x 5.8 cm Cervix: 3.1 cm, closed Placenta: Posterior. No retroplacental hematoma. IMPRESSION: 1. Single viable IUP. No acute findings. 2. EGA 31 weeks 0 days, EDC 04/30/2020
--- NOTE | 2020-02-28 02:08 | ER Document Report ---
ED Fall - General Chief Complaint: Knee Injury Stated Complaint: FALL INJURY Time Seen by Provider: 02/27/20 21:04 Primary Care Provider: LYNDA ENGLISH MD [ACTIVE STAFF] - Follow up as needed Mode of Arrival: Ambulatory Information source: Patient Notes: 24-year-old female 29 weeks 6 days presents to the emergency room today because she fell after tripping over a curb and hit her stomach and knees approximately 1 hour ago. Denies any head trauma or change in level consciousness. States she has felt baby move in that time. Denies any vaginal bleeding or vaginal discharge. Patient wanted to get baby checked out as well as herself. Denies any fevers or chills. Denies being on any blood thinners. TRAVEL OUTSIDE OF THE [place] IN LAST 30 DAYS: No - Related data Allergies/Adverse Reactions: metal Allergy (Severe, Uncoded 02/27/20 21:01) rash Home Medications: PER-NATALS. ZOFRAN Past Medical History - General Information source: Patient - Social History Smoking Status: Former Smoker Frequency of alcohol use: None Drug Abuse: None Family History: Reviewed & Not Pertinent Neurological Medical History: Reports: Hx Seizures - MEDICATION INDUCED >5YRS Renal/ Medical History: Denies: Hx Peritoneal Dialysis Past Surgical History: Reports: Hx Orthopedic Surgery - Immunizations Immunizations up to date: Yes Hx Diphtheria, Pertussis, Tetanus Vaccination: Yes Review of Systems - Review of Systems Female Genitourinary: See HPI Musculoskeletal: See HPI Physical Exam - Vital signs Vitals: Temp Pulse Resp BP Pulse Ox 98.2 F 90 20 143/74 H 97 02/27/20 20:17 02/27/20 20:17 02/27/20 20:17 02/27/20 20:17 02/27/20 20:17 - Notes Notes: PHYSICAL EXAMINATION: GENERAL: Well-appearing, well-nourished and in no acute distress. HEAD: Atraumatic, normocephalic. EYES: Pupils equal round and reactive to light, extraocular movements intact, conjunctiva are normal. ENT: Nares patent, oropharynx clear without exudates. Moist mucous membranes. NECK: Normal range of motion, supple without lymphadenopathy LUNGS: Breath sounds clear to auscultation bilaterally and equal. No wheezes rales or rhonchi. HEART: Regular rate and rhythm without murmurs ABDOMEN: Soft, nontender, gravid abdomen. No guarding, no rebound. No masses appreciated. Female : deferred Musculoskeletal: Normal range of motion, no pitting or edema. No cyanosis. Abrasion noted to anterior left knee. NEUROLOGICAL: Cranial nerves grossly intact. Normal speech, normal gait. Normal sensory, motor exams PSYCH: Normal mood, normal affect. SKIN: Warm, Dry, normal turgor, no rashes or lesions noted. Course - Re-evaluation Re-evalutation: Obstetrics Ultrasound 02/27/20 21:11 IMPRESSION: 1. Single viable IUP. No acute findings. 2. EGA 31 weeks 0 days, EDC 04/30/2020 Patient appears well, nontoxic. Denies any abdominal pain, cramping, leakage of fluids or vaginal bleeding. OB ultrasound as outlined above. Patient does have an abrasion to her right knee. We will discharge her home at this time. - Vital Signs Vital signs: Temp Pulse Resp BP Pulse Ox 98.2 F 88 14 138/72 H 100 02/28/20 00:52 02/28/20 02:35 02/28/20 02:35 02/28/20 02:35 02/28/20 02:35 - Laboratory Results Critical Laboratory Results Reviewed: No Critical Results - Radiology Results Critical Radiology Results Reviewed: No Critical Results Discharge - Discharge Clinical Impression: Fall Qualifiers: Encounter type: initial encounter Qualified Code(s): W19.XXXA - Unspecified fall, initial encounter Qualifiers: Weeks of gestation: 31 weeks Qualified Code(s): Z3A.31 - 31 weeks gestation of Condition: Stable Disposition: HOME, SELF-CARE Additional Instructions: Your ultrasound today showed that you are measuring 31 weeks and 0 days. Baby's heart rate looks good. Apply ice to your knee if you are having pain or discomfort. Take Tylenol 650 mg every 4-6 hours. Follow-up with your [employer] as initially planned. Return to the emergency department or labor and delivery with new or worsening symptoms such as any sudden gush of fluid, vaginal bleeding or rhythmic abdominal pain. Referrals: LYNDA ENGLISH MD [ACTIVE STAFF] - Follow up as needed
[2020-02-28 03:03] VITALS: BP 138/72
== END 2020-02-28 02:35 | disposition home or self-care (01) ==
LOC: ER 20:09
DX: O26.893 Other specified pregnancy related conditions, third trimester (principal); W10.1XXA Fall (on)(from) sidewalk curb, initial encounter; Z3A.31 31 weeks gestation of pregnancy
CPT/HCPCS: 76805; 99284